=== PATIENT | male | born 1950 | race African-American/Black ===

== ENCOUNTER 2016-12-05 14:11 | Inpatient (IN) | payer MEDICARE, MEDICAID ==
[~2016-12-05] VITALS: Ht 172.7 cm; Wt 109.8 kg
--- NOTE | 2016-12-05 14:29 | Emergency Room Report ---
History of Present Illness General Chief Complaint: To Be Triaged Source: Patient, Significant Other Present Illness HPI Patient presents with dark urine. He said it just started this morning. He started new medication for his blood pressure a week ago. He denies any fevers , chills, nausea, vomiting, diarrhea, chest pain, shortness of breath or cough, rashes. He doesn't feel dehydrated at this time. He denies having kidney stones in the past. He's not taking blood thinners at this time. He is diabetic. He has no pain or dysuria. No prior renal disease. No discharge. No trauma. He had labs done recently and states they were normal. Allergies: Coded Allergies: SULFA (SULFONAMIDE ANTIBIOTICS) (Verified Allergy, Unknown, 12/05/16) Patient History Past Medical History: see triage record Social History: Reports: smoking Social History Narrative with Reviewed Nursing Documentation: PMH: Agreed, PSxH: Agreed Review of Systems All Other Systems: negative except mentioned in HPI Physical Exam Vital Signs Date Time Temp Pulse Resp B/P (MAP) Pulse Ox O2 Delivery O2 Flow Rate FiO2 12/05/16 14:46 97.9 72 16 149/72 97 Room Air Sp02 EP Interpretation: reviewed, normal General Appearance: well appearing, no apparent distress, GCS 15 Head: normocephalic Eyes: bilateral eye normal inspection, bilateral eye PERRL ENT: moist mucus membranes Neck: supple Respiratory: lungs clear, normal breath sounds Cardiovascular #1: regular rate, rhythm Cardiovascular #2: 2+ radial (R) Gastrointestinal: normal inspection, normal bowel sounds, non tender, no mass, non-distended Genitourinary: no CVA tenderness Musculoskeletal: back normal, gait/station normal, normal range of motion Neurologic: alert, oriented x3, grossly normal Psychiatric: mood/affect normal Skin: normal inspection, warm/dry Medical Decision Making Diagnostic Impression: Primary Impression: Acute renal failure Qualified Codes: N17.9 - Acute kidney failure, unspecified Additional Impressions: UTI (urinary tract infection) Qualified Codes: N30.00 - Acute cystitis without hematuria History of chronic hypertension ER Course Patient presents with dark urine. Ddx: rhabdo, hematuria, UTI, bladder polyp, dehydration, stone amongst others. Evaluation is with labs and abdominal films. The patient will receive IV hydration. He is not in pain. Labs significant for renal failure. Dialysis is not indicated. Abd films unremarkable. Evidence of UTI - antibiotics begun. Due to severity of renal dysfunction, patient is admitted for urgent evaluation. Admit med Dr. Champion. Laboratory Tests Test 12/05/16 14:55 12/05/16 15:00 12/05/16 21:00 12/06/16 04:55 Urine Color Brown Urine Appearance Slightly cloudy Urine pH 5 (4.5-8.0) Urine Specific [place] 1.025 (1.005-1.035) Urine Protein 3+ (NEGATIVE) H Urine Glucose (UA) Negative (NEGATIVE) Urine Ketones Negative (NEGATIVE) Urine Occult Blood 5+ (NEGATIVE) H Urine Nitrite Positive (NEGATIVE) H Urine Bilirubin 1+ (NEGATIVE) H Urine Ictotest Negative Urine Urobilinogen 1 MG/DL (0.0-1.0) H Urine Leukocyte Esterase 2+ (NEGATIVE) H Urine RBC 20-30 /HPF (0 - 0) H Urine WBC 5-10 /HPF (0 - 0) H Urine Squamous Epithelial Cells None /LPF (NONE/OCC) Urine Amorphous Sediment Few /LPF (NONE) H Urine Bacteria Few /HPF (NONE) White Blood Count 5.0 K/UL (4.8-10.8) 3.6 K/UL (4.8-10.8) L Red Blood Count 3.26 M/UL (4.70-6.10) L 3.21 M/UL (4.70-6.10) L Hemoglobin 11.7 G/DL (14.2-18.0) L 11.7 G/DL (14.2-18.0) L Hematocrit 35.1 % (42.0-52.0) L 33.8 % (42.0-52.0) L Mean Corpuscular Volume 108 FL (80-99) H 106 FL (80-99) H Mean Corpuscular Hemoglobin 36.0 PG (27.0-31.0) H 36.3 PG (27.0-31.0) H Mean Corpuscular Hemoglobin Concent 33.4 G/DL (32.0-36.0) 34.5 G/DL (32.0-36.0) Red Cell Distribution Width 11.4 % (11.6-14.8) L 11.1 % (11.6-14.8) L Platelet Count 134 K/UL (150-450) L 126 K/UL (150-450) L Mean Platelet Volume 7.1 FL (6.5-10.1) 7.7 FL (6.5-10.1) Neutrophils (%) (Auto) 58.2 % (45.0-75.0) 57.7 % (45.0-75.0) Lymphocytes (%) (Auto) 21.1 % (20.0-45.0) 20.8 % (20.0-45.0) Monocytes (%) (Auto) 11.1 % (1.0-10.0) H 11.4 % (1.0-10.0) H Eosinophils (%) (Auto) 7.8 % (0.0-3.0) H 7.8 % (0.0-3.0) H Basophils (%) (Auto) 1.8 % (0.0-2.0) 2.4 % (0.0-2.0) H Prothrombin Time 9.3 SEC (9.30-11.50) Prothrombin Time INR 0.9 (0.9-1.1) PTT 33 SEC (23-33) Sodium Level 137 mEQ/L (135-145) 136 mEQ/L (135-145) Potassium Level 4.7 mEQ/L (3.4-4.9) 4.7 mEQ/L (3.4-4.9) Chloride Level 95 mEQ/L (98-107) L 98 mEQ/L (98-107) Carbon Dioxide Level 25 mEQ/L (20-30) 24 mEQ/L (20-30) Anion Gap 17 (5-15) H 14 (5-15) Blood Urea Nitrogen 64 mg/dL (7-23) H 56 mg/dL (7-23) H Creatinine 5.9 mg/dL (0.7-1.2) H 3.3 mg/dL (0.7-1.2) H Estimate Glomerular Filtration Rate 11.6 mL/min (>60) 22.8 mL/min (>60) Glucose Level 99 mg/dL (74-106) 97 mg/dL (74-106) Calcium Level 9.7 mg/dL (8.6-10.2) 8.9 mg/dL (8.6-10.2) Total Bilirubin 0.7 mg/dL (0.0-1.2) 0.5 mg/dL (0.0-1.2) Aspartate Amino Transferase (AST) 24 U/L (5-40) 29 U/L (5-40) Alanine Aminotransferase (ALT) 24 U/L (3-41) 24 U/L (3-41) Alkaline Phosphatase 38 U/L (40-129) L 34 U/L (40-129) L Total Creatine Kinase 190 U/L (38-174) H Total Protein 8.2 g/dL (6.6-8.7) 7.0 g/dL (6.6-8.7) Albumin 5.1 g/dL (3.5-5.2) 4.3 g/dL (3.5-5.2) Globulin 3.1 g/dL 2.7 g/dL Albumin/Globulin Ratio 1.6 (1.0-2.7) 1.5 (1.0-2.7) Lipase 53 U/L (< 60) Urine Eosinophils None seen Urine Osmolality 451 mOsm/kg (429-449) H Urine Random Sodium 110 mmol/L Urine Random Chloride 77 mmol/L Urine Potassium Timed 13 mmol/L Hemoglobin A1c 5.4 % (< 6.0) Triglycerides Level 202 mg/dL (< 150) H Cholesterol Level 149 mg/dL (< 200) LDL Cholesterol 57 mg/dL (60-99) L HDL Cholesterol 52 mg/dL (> 60) Cholesterol/HDL Ratio 2.9 (3.3-4.4) L Thyroid Stimulating Hormone (TSH) 3.510 uIU/mL (0.300-4.500) Rhythm Strip Diag. Results EP Interpretation: yes Rhythm: NSR, no PVC's, no ectopy Other X-Ray Diagnostic Results Other X-Ray Diagnostic Results : X-Ray ordered: abd # of Views/Limited Vs Complete: 2 View Indication: Other Interpretation: nonspecific bowel gas, no sbo, other - no calcifications or masses Impression: Other Interpreting ER Provider: signed Amarjit Simons MD Status: improved Disposition: ADMITTED INPATIENT Condition: Serious Amarjit Simons M.D. Dec 05, 2016 14:29
[2016-12-05 15:30] LABS: APPEARANCE,URINE SLIGHTLY CLOUDY; KETONES,URINE NEGATIVE (NEGATIVE); LEUKOCYTE ESTERASE ,URINE 2+ (NEGATIVE); NITRITE,URINE POSITIVE (NEGATIVE); PH,URINE 5 (4.5-8.0); PROTEIN,URINE 3+ (NEGATIVE); UROBILINOGEN,URINE 1 MG/DL (0.0-1.0)
[2016-12-05 15:36] LABS: BASOPHILS % (AUTO) 1.8 % (0.0-2.0); EOSINOPHILS % (AUTO) 7.8 % (0.0-3.0); LYMPHOCYTES % (AUTO) 21.1 % (20.0-45.0); MEAN CORPUSCULAR HGB CONC 33.4 G/DL (32.0-36.0); MEAN CORPUSCULAR VOLUME 108 FL (80-99); MEAN PLATELET VOLUME 7.1 FL (6.5-10.1); MONOCYTES % (AUTO) 11.1 % (1.0-10.0); NEUTROPHILS % (AUTO) 58.2 % (45.0-75.0); PLATELET COUNT 134 K/UL (150-450); RED BLOOD COUNT 3.26 M/UL (4.70-6.10); RED CELL DISTRIBUTION WIDTH 11.4 % (11.6-14.8)
[2016-12-05 15:43] LABS: INR 0.9 (0.9-1.1); PROTHROMBIN TIME 9.3 SEC (9.30-11.50)
[2016-12-05 15:50] LABS: AMORPHOUS SEDIMENT,UR FEW /LPF; BACTERIA,URINE FEW /HPF; RBC,URINE 20-30 /HPF (0 - 0)
[2016-12-05 15:51] LABS: ICTOTEST NEGATIVE
[2016-12-05 15:56] LABS: ALBUMIN/GLOBULIN RATIO 1.6 (1.0-2.7); CALCIUM 9.7 mg/dL (8.6-10.2); CREATININE 5.9 mg/dL (0.7-1.2); GLOMERULAR FILTRATION RATE 11.6 mL/min (>60); POTASSIUM 4.7 mEQ/L (3.4-4.9); TOTAL PROTEIN 8.2 g/dL (6.6-8.7)
[2016-12-05 16:30] VITALS: BP 147/64
[2016-12-05] MEDS ORDERED: NS 55 ML IV ONE (17:10)
[2016-12-05] MEDS ORDERED: Tubing IV Cassette IV ONE (17:10)
[2016-12-05] MEDS: cefTRIAXone 1 GM in NS 55 ML IVPB ONE ×2 (17:15→17:17)
[2016-12-05] MEDS ORDERED: SIMVASTATIN40 MG ORAL (17:29)
[2016-12-05] MEDS ORDERED: AMLODIPINE BESY10 MG ORAL (17:29)
[2016-12-05] MEDS ORDERED: SPIRONOLACTONE1 EACH ORAL (17:29)
[2016-12-05] MEDS ORDERED: LEVOTHYROXINE25 MCG ORAL (17:29)
[2016-12-05] MEDS ORDERED: METOPROLOL TART25 MG ORAL (17:29)
[2016-12-05] MEDS ORDERED: DIOVAN320 MG ORAL (17:29)
[2016-12-05] MEDS ORDERED: LYRICA75 M1 ORAL (17:29)
[2016-12-05] MEDS ORDERED: METFORMIN HCL500 M1 ORAL (17:29)
[2016-12-05] MEDS ORDERED: Mylanta II UD 30ml ORAL PRN (17:45)
[2016-12-05] MEDS ORDERED: Zolpidem 5mg tab ORAL PRN (17:45)
[2016-12-05] MEDS ORDERED: LORazepam Inj 2mg/ml 1ml IV PRN (17:45)
[2016-12-05] MEDS ORDERED: Morphine Sulfate 2mg/ml Inj IVP PRN (17:45)
[2016-12-05] MEDS ORDERED: Miralax 17gm pkt ORAL PRN (17:45)
[2016-12-05 18:54] VITALS: BP 142/70
[2016-12-05 20:00] VITALS: BP 145/58
[2016-12-05] MEDS: Heparin 5000 units/ml inj SUBQ SCH (21:00)
[2016-12-05] MEDS: Metoprolol 25mg tab ORAL SCH (21:19)
[2016-12-06 04:00] VITALS: BP 139/77
[2016-12-06] MEDS: Levothyroxine 25mcg tab ORAL SCH (05:54)
[2016-12-06 06:21] LABS: BASOPHILS % (AUTO) 2.4 % (0.0-2.0); EOSINOPHILS % (AUTO) 7.8 % (0.0-3.0); LYMPHOCYTES % (AUTO) 20.8 % (20.0-45.0); MEAN CORPUSCULAR HEMOGLOBIN 36.3 PG (27.0-31.0); MEAN CORPUSCULAR HGB CONC 34.5 G/DL (32.0-36.0); MEAN CORPUSCULAR VOLUME 106 FL (80-99); MEAN PLATELET VOLUME 7.7 FL (6.5-10.1); MONOCYTES % (AUTO) 11.4 % (1.0-10.0); NEUTROPHILS % (AUTO) 57.7 % (45.0-75.0); PLATELET COUNT 126 K/UL (150-450); RED BLOOD COUNT 3.21 M/UL (4.70-6.10); RED CELL DISTRIBUTION WIDTH 11.1 % (11.6-14.8); WHITE BLOOD COUNT 3.6 K/UL (4.8-10.8)
[2016-12-06 06:38] LABS: ALBUMIN/GLOBULIN RATIO 1.5 (1.0-2.7); CALCIUM 8.9 mg/dL (8.6-10.2); CHOLESTEROL/HDL RATIO 2.9 (3.3-4.4); CREATININE 3.3 mg/dL (0.7-1.2); GLOMERULAR FILTRATION RATE 22.8 mL/min (>60); POTASSIUM 4.7 mEQ/L (3.4-4.9)
[2016-12-06 06:40] LABS: HEMOGLOBIN A1C 5.4 % (< 6.0)
[2016-12-06 06:49] LABS: THYROID STIMULATING HORMONE 3.51 uIU/mL (0.300-4.500)
[2016-12-06 08:00] VITALS: BP 121/57
[2016-12-06] MEDS: Metoprolol 25mg tab ORAL SCH ×2 (08:31→21:00)
[2016-12-06] MEDS: Heparin 5000 units/ml inj SUBQ SCH ×2 (08:37→21:00)
--- NOTE | 2016-12-06 08:56 | Consultation ---
Consult Note Consult Note asked to eval for renal failure Patient presents with dark urine. He said it just started yesterday morning. He started new medication for his blood pressure a week ago. The second after the changes. He denies any fevers, chills, nausea, vomiting, diarrhea, chest pain, shortness of breath or cough, rashes. He doesn't feel dehydrated at this time. He denies having kidney stones in the past. He's not taking blood thinners at this time. He is diabetic. Patient interviewed and examined- List of meds reviewed on Aldactone- Metformin- Valsartan, HCTZ . Assessment/Plan Acute renal failure likely superimposed on CRI Anemia HTN h/o CHF Plan: Avoid Nephrotoxics Kidney BLAYNE Urine studies Hydrate slow 2D Echo Monitor renal parameters SHIRA Sullivan Dec 06, 2016 08:56
[2016-12-06] MEDS: Tamsulosin 0.4mg cap ORAL SCH ×2 (09:35→17:13)
--- NOTE | 2016-12-06 11:36 | Diagnostic Imaging Report ---
Indication: Abdominal pain Comparison: None Single view of the abdomen obtained Findings: Bowel gas pattern is nonspecific. No mass, ectopic calcifications, or abnormal gas collections are identified. The bones are osteopenic. Degenerative changes moderate in degree noted throughout the thoracic and lumbar spine. Impression: No acute findings
[2016-12-06 12:00] VITALS: BP 131/59
--- NOTE | 2016-12-06 12:53 | Diagnostic Imaging Report ---
Indication:Elevated Bun and Creatinine. Technique: Grayscale and duplex Doppler imaging of the kidneys performed. Comparison: None Findings: There are multiple cysts within the right kidney which measures 12.3 CM. The left kidney is a 12.1 CM in length. Largest cyst is in the upper pole the right kidney and measures about 7 cm. No hydronephrosis demonstrated. There is a small cyst in the liver as well. IVC and bladder appear unremarkable. Impression: Multiple cysts within the right kidney.
[2016-12-06] MEDS ORDERED: D5NS 1,000 ML IV ONE (13:15)
[2016-12-06 16:00] VITALS: BP 131/60
--- NOTE | 2016-12-06 18:38 | Cardiology Report ---
APPROVED REPORT EXAM: Two-dimensional and M-mode echocardiogram with Doppler and color Doppler. INDICATION Congestive Heart Failure M-Mode DIMENSIONS IVSd1.4 (0.7-1.1cm)Left Atrium (MM)4.5 (1.6-4.0cm) LVDd5.0 (3.5-5.6cm)Aortic Root2.9 (2.0-3.7cm) PWd1.9 (0.7-1.1cm)Aortic Cusp Exc.1.6 (1.5-2.0cm) IVSs2.1 cm LVDs3.3 (2.5-4.0cm) PWs2.4 cm Technically difficult study due to poor acoustical windows and pts body habitus. Left ventricular enlargement by 2-D. Normal systolic function and wall motion to extent visualized. Left ventricular ejection fraction estimated to be 65-70 %. Study quality precludes accurate assessment of regional wall motion. Mild left ventricular hypertrophy. Anterior Echo-free space, may be due to pericardial fat or effusion. Moderate left atrial enlargement. Mild right atrial enlargement. Right ventricular chamber size is within normal limits. Focal aortic valve sclerosis with adequate cusp excursion. Thickened mitral valve leaflets with normal excursion. Mitral annulus and aortic root calcification. Pulmonic valve not well visualized. Normal tricuspid valve structure. IVC at normal size with physiologic collapse. A color flow and spectral Doppler study was performed and revealed: Mild aortic regurgitation. Mild mitral regurgitation. Mitral inflow indicates normal left ventricular diastolic function. Mild tricuspid regurgitation. Tricuspid systolic velocities suggests peak right ventricular systolic pressure of 36 mmHg, consistent with borderline mild pulmonary hypertension. Trace pulmonic regurgitation present.
[2016-12-06 20:00] VITALS: BP 127/63
[2016-12-06] MEDS: NovoLOG Insulin Flexpen SUBQ SCH (21:00)
[2016-12-07] VITALS: BP 136/69
[2016-12-07] MEDS: Levothyroxine 25mcg tab ORAL SCH (06:05)
[2016-12-07] MEDS: NovoLOG Insulin Flexpen SUBQ SCH ×3 (06:06→16:30)
[2016-12-07 07:10] LABS: HEMOGLOBIN A1C 5.7 % (< 6.0)
[2016-12-07 07:13] LABS: MEAN CORPUSCULAR HEMOGLOBIN 35.7 PG (27.0-31.0); MEAN CORPUSCULAR HGB CONC 34.1 G/DL (32.0-36.0); MEAN CORPUSCULAR VOLUME 105 FL (80-99); MEAN PLATELET VOLUME 7.7 FL (6.5-10.1); PLATELET COUNT 121 K/UL (150-450); RED BLOOD COUNT 3.32 M/UL (4.70-6.10); RED CELL DISTRIBUTION WIDTH 10.8 % (11.6-14.8); WHITE BLOOD COUNT 3.4 K/UL (4.8-10.8)
[2016-12-07 07:22] LABS: FERRITIN 196 ng/mL (10-230)
[2016-12-07 07:25] LABS: ALANINE AMINOTRANSFERASE 30 U/L (3-41); ALBUMIN/GLOBULIN RATIO 1.4 (1.0-2.7); ANION GAP 15 (5-15); ASPARTATE AMINO TRANSFERASE 46 U/L (5-40); CARBON DIOXIDE 24 mEQ/L (20-30); CHLORIDE 94 mEQ/L (98-107); CREATININE 1.4 mg/dL (0.7-1.2); GLOMERULAR FILTRATION RATE > 60 mL/min (>60); HEMOLYSIS 4; POTASSIUM 4.4 mEQ/L (3.4-4.9); SODIUM 133 mEQ/L (135-145); TOTAL PROTEIN 7.3 g/dL (6.6-8.7); URIC ACID 10.2 mg/dL (3.0-7.5)
[2016-12-07 07:27] LABS: CRP QUANT < 0.3 mg/dL (< 0.5); MAGNESIUM 1.8 mg/dL (1.7-2.5); PHOSPHORUS 2.8 mg/dL (2.5-4.8)
[2016-12-07 08:00] VITALS: BP 117/47
[2016-12-07] MEDS: Tamsulosin 0.4mg cap ORAL SCH ×2 (08:17→17:16)
[2016-12-07] MEDS: Metoprolol 25mg tab ORAL SCH (08:18)
[2016-12-07] MEDS: Heparin 5000 units/ml inj SUBQ SCH (08:20)
[2016-12-07 09:55] LABS: BAND NEUTROPHILS % (MANUAL) 0 % (0-8); BASOPHILS % (MANUAL) 0 % (0-2); EOSINOPHILS % (MANUAL) 9 % (0-3); LYMPHOCYTES % (MANUAL) 35 % (20-45); MACROCYTES 1+; NEUTROPHILS % (MANUAL) 47 % (45-75); PLATELET ESTIMATE DECREASED; PLATELET MORPHOLOGY NORMAL; TOTAL CELLS COUNTED 100
--- NOTE | 2016-12-07 12:02 | General Progress Note ---
Assessment/Plan Status: doing well, stable Status Narrative Cr 5.9 now down to 1.4 Assessment/Plan status: Acute renal failure likely superimposed on CRI Anemia HTN h/o CHF Plan: Avoid Nephrotoxics Kidney BLAYNE : unremarkable Urine studies Hydrate slow 2D Echo: Left ventricular ejection fraction estimated to be 65-70 %. Monitor renal parameters Fl[place]ax DC planning Subjective ROS Limited/Unobtainable: No Constitutional: Reports: other - stronger Allergies: Coded Allergies: SULFA (SULFONAMIDE ANTIBIOTICS) (Verified Allergy, Unknown, 12/05/16) Objective Last 24 Hour Vital Signs Date Time Temp Pulse Resp B/P (MAP) Pulse Ox O2 Delivery O2 Flow Rate FiO2 12/07/16 08:20 75 117/47 12/07/16 08:18 75 117/47 12/07/16 08:00 98.2 68 17 117/47 95 Room Air 12/07/16 00:00 97.9 68 16 136/69 97 Room Air 12/06/16 21:00 61 127/63 12/06/16 20:00 98.2 61 18 127/63 96 Room Air 12/06/16 16:00 97.2 61 20 131/60 98 Room Air 12/06/16 12:00 97.4 50 20 131/59 97 Room Air Current Medications Medications (Trade) Dose Ordered Sig/Simran Route PRN Reason Start Time Stop Time Status Last Admin Dose Admin Acetaminophen (Tylenol) 650 mg Q4H PRN ORAL fever 12/05/16 17:45 01/04/17 17:44 Amlodipine Besylate (Norvasc) 5 mg DAILY ORAL 12/07/16 09:00 01/06/17 08:59 Clonidine HCl (Catapres) 0.1 mg Q4H PRN ORAL SBP>160 mmHg 12/06/16 13:45 01/05/17 13:44 Dextrose (Dextrose 50%) STAT PRN IV Hypoglycemia 12/05/16 17:45 01/04/17 17:44 Heparin Sodium (Porcine) (Heparin 5000 units/ml) 5,000 units EVERY 12 HOURS SUBQ 12/05/16 21:00 01/04/17 20:59 Insulin Aspart (NovoLOG) BEFORE MEALS AND HS SUBQ 12/06/16 21:00 01/05/17 20:59 Levothyroxine Sodium (Synthroid) 25 mcg ACBREAKFAST ORAL 12/06/16 06:30 01/05/17 06:29 12/07/16 06:05 Lorazepam (Ativan 2mg/ml 1ml) 0.5 mg Q4H PRN IV For Anxiety 12/05/16 17:45 12/12/16 17:44 Metoprolol Tartrate (Lopressor) 25 mg EVERY 12 HOURS ORAL 12/05/16 21:00 01/04/17 20:59 12/06/16 08:31 Morphine Sulfate (Morphine Sulfate) 1 mg Q4H PRN IVP For Pain 12/05/16 17:45 12/12/16 17:44 Ondansetron HCl (Zofran) 4 mg Q6H PRN IVP Nausea & Vomiting 12/05/16 17:45 01/04/17 17:44 Polyethylene Glycol (Miralax) 17 gm HSPRN PRN ORAL Constipation 12/05/16 17:45 01/04/17 17:44 Tamsulosin HCl (Flomax) 0.4 mg BID ORAL 12/06/16 10:00 01/05/17 09:59 12/07/16 08:17 Zolpidem Tartrate (Ambien) 5 mg HSPRN PRN ORAL Insomnia 12/05/16 17:45 12/12/16 17:44 Laboratory Tests 12/07/16 05:35: White Blood Count 3.4L, Red Blood Count 3.32L, Hemoglobin 11.8L, Hematocrit 34.7L, Mean Corpuscular Volume 105H, Mean Corpuscular Hemoglobin 35.7H, Mean Corpuscular Hemoglobin Concent 34.1, Red Cell Distribution Width 10.8L, Platelet Count 121L, Mean Platelet Volume 7.7, Neutrophils (%) (Auto) , Lymphocytes (%) (Auto) , Monocytes (%) (Auto) , Eosinophils (%) (Auto) , Basophils (%) (Auto) , Differential Total Cells Counted 100, Neutrophils % ( Manual) 47, Lymphocytes % (Manual) 35, Monocytes % (Manual) 9, Eosinophils % ( Manual) 9H, Basophils % (Manual) 0, Band Neutrophils 0, Platelet Estimate DecreasedL, Platelet Morphology Normal, Macrocytosis 1+, Sodium Level 133L, Potassium Level 4.4, Chloride Level 94L, Carbon Dioxide Level 24, Anion Gap 15, Blood Urea Nitrogen 34H, Creatinine 1.4#H, Estimat Glomerular Filtration Rate > 60, Glucose Level 101, Hemoglobin A1c 5.7, Uric Acid 10.2H, Calcium Level 9.0, Phosphorus Level 2.8, Magnesium Level 1.8, Ferritin 196, Total Bilirubin 0.5, Gamma Glutamyl Transpeptidase 50, Aspartate Amino Transf (AST/SGOT) 46H, Alanine Aminotransferase (ALT/SGPT) 30, Alkaline Phosphatase 35L, Total Creatine Kinase 140, C-Reactive Protein, Quantitative < 0.3, Pro-B-Type Natriuretic Peptide 88, Total Protein 7.3, Albumin 4.3, Globulin 3.0, Albumin/ Globulin Ratio 1.4, Vitamin B12 Level 1189H, Folate [Pending] Height (Feet): 5 Height (Inches): 8.00 Weight (Pounds): 242 General Appearance: no apparent distress Cardiovascular: normal rate Respiratory/Chest: lungs clear Abdomen: soft, other - obese Objective no signs of CHF SHIRA WORTHINGTON Dec 07, 2016 12:02
[2016-12-07 12:21] VITALS: BP 130/64
--- NOTE | 2016-12-07 15:36 | History and Physical ---
History of Present Illness General Date patient seen: Dec 05, 2016 Reason for Hospitalization: Male Urogenital Problems Present Illness HPI 65 year old male with hx of DM, HTN, hypothyroid presented to ER with dark urine started this morning. He started new medication for his blood pressure a week ago. He denies any fevers, chills, nausea, vomiting, diarrhea, chest pain , shortness of breath or cough, rashes. He doesn't feel dehydrated at this time. He denies having kidney stones in the past. He's not taking blood thinners at this time. He was diagnosed to have acute renal failure and admitted for further work up. Allergies: Coded Allergies: SULFA (SULFONAMIDE ANTIBIOTICS) (Verified Allergy, Unknown, 12/05/16) Medication History Scheduled Amlodipine Besylate* (Amlodipine Besylate*), 10 MG ORAL DAILY, (Reported) Levothyroxine Sodium* (Levothyroxine Sodium*), 25 MCG ORAL DAILY, (Reported) Metformin Hcl* (Metformin Hcl*), 500 MG ORAL TWICE A DAY, (Reported) Metoprolol Tartrate* (Metoprolol Tartrate*), 25 MG ORAL EVERY 12 HOURS, ( Reported) Pregabalin* (Lyrica*), 50 MG ORAL BID, (Reported) Simvastatin (Zocor), 40 MG ORAL BEDTIME, (Reported) Spironolact/Hydrochlorothiazid (Spironolactone-Hctz 25-25 Tab), 1 TAB ORAL DAILY , (Reported) Valsartan (Diovan), 320 MG ORAL DAILY, (Reported) Patient History Healthcare decision maker Resuscitation status Full Code Advanced Directive on File Past Medical/Surgical History Past Medical/Surgical History: (1) Diabetes mellitus (2) Hypothyroidism (3) History of chronic hypertension Review of Systems Constitutional: Reports: malaise, weakness All Other Systems: negative except mentioned in HPI Physical Exam General Appearance: WD/WN, overweight Lines, tubes and drains: peripheral HEENT: normocephalic, atraumatic Neck: non-tender, supple Respiratory/Chest: chest wall non-tender, normal breath sounds Cardiovascular/Chest: normal peripheral pulses, normal rate Abdomen: normal bowel sounds Genitourinary/Rectal: normal genital exam, heme negative stool Extremities: normal range of motion Last 24 Hour Vital Signs Date Time Temp Pulse Resp B/P (MAP) Pulse Ox O2 Delivery O2 Flow Rate FiO2 9/6/17 12:21 97.6 70 17 130/64 98 Room Air 12/07/16 08:20 75 117/47 12/07/16 08:18 75 117/47 12/07/16 08:00 98.2 68 17 117/47 95 Room Air 12/07/16 00:00 97.9 68 16 136/69 97 Room Air 12/06/16 21:00 61 127/63 12/06/16 20:00 98.2 61 18 127/63 96 Room Air 12/06/16 16:00 97.2 61 20 131/60 98 Room Air Laboratory Tests Test 12/07/16 05:35 White Blood Count 3.4 K/UL (4.8-10.8) L Red Blood Count 3.32 M/UL (4.70-6.10) L Hemoglobin 11.8 G/DL (14.2-18.0) L Hematocrit 34.7 % (42.0-52.0) L Mean Corpuscular Volume 105 FL (80-99) H Mean Corpuscular Hemoglobin 35.7 PG (27.0-31.0) H Mean Corpuscular Hemoglobin Concent 34.1 G/DL (32.0-36.0) Red Cell Distribution Width 10.8 % (11.6-14.8) L Platelet Count 121 K/UL (150-450) L Mean Platelet Volume 7.7 FL (6.5-10.1) Neutrophils (%) (Auto) % (45.0-75.0) Lymphocytes (%) (Auto) % (20.0-45.0) Monocytes (%) (Auto) % (1.0-10.0) Eosinophils (%) (Auto) % (0.0-3.0) Basophils (%) (Auto) % (0.0-2.0) Differential Total Cells Counted 100 Neutrophils % (Manual) 47 % (45-75) Lymphocytes % (Manual) 35 % (20-45) Monocytes % (Manual) 9 % (1-10) Eosinophils % (Manual) 9 % (0-3) H Basophils % (Manual) 0 % (0-2) Band Neutrophils 0 % (0-8) Platelet Estimate Decreased L Platelet Morphology Normal Macrocytosis 1+ Sodium Level 133 mEQ/L (135-145) L Potassium Level 4.4 mEQ/L (3.4-4.9) Chloride Level 94 mEQ/L (98-107) L Carbon Dioxide Level 24 mEQ/L (20-30) Anion Gap 15 (5-15) Blood Urea Nitrogen 34 mg/dL (7-23) H Creatinine 1.4 mg/dL (0.7-1.2) #H Estimat Glomerular Filtration Rate > 60 mL/min (>60) Glucose Level 101 mg/dL (74-106) Hemoglobin A1c 5.7 % (< 6.0) Uric Acid 10.2 mg/dL (3.0-7.5) H Calcium Level 9.0 mg/dL (8.6-10.2) Phosphorus Level 2.8 mg/dL (2.5-4.8) Magnesium Level 1.8 mg/dL (1.7-2.5) Ferritin 196 ng/mL (10-230) Total Bilirubin 0.5 mg/dL (0.0-1.2) Gamma Glutamyl Transpeptidase 50 U/L (8-61) Aspartate Amino Transf (AST/SGOT) 46 U/L (5-40) H Alanine Aminotransferase (ALT/SGPT) 30 U/L (3-41) Alkaline Phosphatase 35 U/L (40-129) L Total Creatine Kinase 140 U/L (38-174) C-Reactive Protein, Quantitative < 0.3 mg/dL (< 0.5) Pro-B-Type Natriuretic Peptide 88 pg/mL (0-125) Total Protein 7.3 g/dL (6.6-8.7) Albumin 4.3 g/dL (3.5-5.2) Globulin 3.0 g/dL Albumin/Globulin Ratio 1.4 (1.0-2.7) Vitamin B12 Level 1189 pg/mL (211-946) H Folate Pending Height (Feet): 5 Height (Inches): 8.00 Weight (Pounds): 242 Medications Current Medications Medications (Trade) Dose Ordered Sig/Simran Route PRN Reason Start Time Stop Time Status Last Admin Dose Admin Acetaminophen (Tylenol) 650 mg Q4H PRN ORAL fever 12/05/16 17:45 01/04/17 17:44 Amlodipine Besylate (Norvasc) 5 mg DAILY ORAL 12/07/16 09:00 01/06/17 08:59 Clonidine HCl (Catapres) 0.1 mg Q4H PRN ORAL SBP>160 mmHg 12/06/16 13:45 01/05/17 13:44 Dextrose (Dextrose 50%) STAT PRN IV Hypoglycemia 12/05/16 17:45 01/04/17 17:44 Heparin Sodium (Porcine) (Heparin 5000 units/ml) 5,000 units EVERY 12 HOURS SUBQ 12/05/16 21:00 01/04/17 20:59 Insulin Aspart (NovoLOG) BEFORE MEALS AND HS SUBQ 12/06/16 21:00 01/05/17 20:59 Levothyroxine Sodium (Synthroid) 25 mcg ACBREAKFAST ORAL 12/06/16 06:30 01/05/17 06:29 12/07/16 06:05 Lorazepam (Ativan 2mg/ml 1ml) 0.5 mg Q4H PRN IV For Anxiety 12/05/16 17:45 12/12/16 17:44 Metoprolol Tartrate (Lopressor) 25 mg EVERY 12 HOURS ORAL 12/05/16 21:00 01/04/17 20:59 12/06/16 08:31 Morphine Sulfate (Morphine Sulfate) 1 mg Q4H PRN IVP For Pain 12/05/16 17:45 12/12/16 17:44 Ondansetron HCl (Zofran) 4 mg Q6H PRN IVP Nausea & Vomiting 12/05/16 17:45 01/04/17 17:44 Polyethylene Glycol (Miralax) 17 gm HSPRN PRN ORAL Constipation 12/05/16 17:45 01/04/17 17:44 Tamsulosin HCl (Flomax) 0.4 mg BID ORAL 12/06/16 10:00 01/05/17 09:59 12/07/16 08:17 Zolpidem Tartrate (Ambien) 5 mg HSPRN PRN ORAL Insomnia 12/05/16 17:45 12/12/16 17:44 Assessment/Plan Problem List: (1) ATN (acute tubular necrosis) ICD Codes: N17.0 - Acute kidney failure with tubular necrosis SNOMED: 73203564 (2) Diabetes mellitus ICD Codes: E11.9 - Type 2 diabetes mellitus without complications SNOMED: 18534982 (3) Hypothyroidism ICD Codes: E03.9 - Hypothyroidism, unspecified SNOMED: 66342996 Assessment/Plan renal US check electrolytes check urine lytes nephrology evaluation sliding scale diabetic diet ANGI SOTO Dec 07, 2016 15:36
--- NOTE | 2016-12-07 15:37 | Pulmonology Progress Note ---
Assessment/Plan Problems: (1) ATN (acute tubular necrosis) (2) Diabetes mellitus (3) Hypothyroidism Assessment/Plan improving the color of urine is better sliding scale diabetic diet f/u electrolytes Subjective ROS Limited/Unobtainable: No Interval Events: late note for 12/06 Constitutional: Reports: no symptoms HEENT: Repors: no symptoms Respiratory: Reports: no symptoms Allergies: Coded Allergies: SULFA (SULFONAMIDE ANTIBIOTICS) (Verified Allergy, Unknown, 12/05/16) Objective Last 24 Hour Vital Signs Date Time Temp Pulse Resp B/P (MAP) Pulse Ox O2 Delivery O2 Flow Rate FiO2 12/07/16 12:21 97.6 70 17 130/64 98 Room Air 12/07/16 08:20 75 117/47 12/07/16 08:18 75 117/47 12/07/16 08:00 98.2 68 17 117/47 95 Room Air 12/07/16 00:00 97.9 68 16 136/69 97 Room Air 12/06/16 21:00 61 127/63 12/06/16 20:00 98.2 61 18 127/63 96 Room Air 12/06/16 16:00 97.2 61 20 131/60 98 Room Air General Appearance: WD/WN HEENT: normocephalic, atraumatic Respiratory/Chest: chest wall non-tender, normal breath sounds Cardiovascular: normal peripheral pulses, normal rate Abdomen: normal bowel sounds, soft, non tender, no organomegaly Genitourinary: normal external genitalia Extremities: no clubbing Skin: no lesions, no ulcers Neurologic/Psychiatric: digital strategy specialist II-XII grossly normal, abnormal gait Lymphatic: no neck adenopathy, no groin adenopathy Laboratory Tests 12/07/16 05:35: White Blood Count 3.4L, Red Blood Count 3.32L, Hemoglobin 11.8L, Hematocrit 34.7L, Mean Corpuscular Volume 105H, Mean Corpuscular Hemoglobin 35.7H, Mean Corpuscular Hemoglobin Concent 34.1, Red Cell Distribution Width 10.8L, Platelet Count 121L, Mean Platelet Volume 7.7, Neutrophils (%) (Auto) , Lymphocytes (%) (Auto) , Monocytes (%) (Auto) , Eosinophils (%) (Auto) , Basophils (%) (Auto) , Differential Total Cells Counted 100, Neutrophils % ( Manual) 47, Lymphocytes % (Manual) 35, Monocytes % (Manual) 9, Eosinophils % ( Manual) 9H, Basophils % (Manual) 0, Band Neutrophils 0, Platelet Estimate DecreasedL, Platelet Morphology Normal, Macrocytosis 1+, Sodium Level 133L, Potassium Level 4.4, Chloride Level 94L, Carbon Dioxide Level 24, Anion Gap 15, Blood Urea Nitrogen 34H, Creatinine 1.4#H, Estimat Glomerular Filtration Rate > 60, Glucose Level 101, Hemoglobin A1c 5.7, Uric Acid 10.2H, Calcium Level 9.0, Phosphorus Level 2.8, Magnesium Level 1.8, Ferritin 196, Total Bilirubin 0.5, Gamma Glutamyl Transpeptidase 50, Aspartate Amino Transf (AST/SGOT) 46H, Alanine Aminotransferase (ALT/SGPT) 30, Alkaline Phosphatase 35L, Total Creatine Kinase 140, C-Reactive Protein, Quantitative < 0.3, Pro-B-Type Natriuretic Peptide 88, Total Protein 7.3, Albumin 4.3, Globulin 3.0, Albumin/ Globulin Ratio 1.4, Vitamin B12 Level 1189H, Folate [Pending] Current Medications Medications (Trade) Dose Ordered Sig/Simran Route PRN Reason Start Time Stop Time Status Last Admin Dose Admin Acetaminophen (Tylenol) 650 mg Q4H PRN ORAL fever 12/05/16 17:45 01/04/17 17:44 Amlodipine Besylate (Norvasc) 5 mg DAILY ORAL 12/07/16 09:00 01/06/17 08:59 Clonidine HCl (Catapres) 0.1 mg Q4H PRN ORAL SBP>160 mmHg 12/06/16 13:45 01/05/17 13:44 Dextrose (Dextrose 50%) STAT PRN IV Hypoglycemia 12/05/16 17:45 01/04/17 17:44 Heparin Sodium (Porcine) (Heparin 5000 units/ml) 5,000 units EVERY 12 HOURS SUBQ 12/05/16 21:00 01/04/17 20:59 Insulin Aspart (NovoLOG) BEFORE MEALS AND HS SUBQ 12/06/16 21:00 01/05/17 20:59 Levothyroxine Sodium (Synthroid) 25 mcg ACBREAKFAST ORAL 12/06/16 06:30 01/05/17 06:29 12/07/16 06:05 Lorazepam (Ativan 2mg/ml 1ml) 0.5 mg Q4H PRN IV For Anxiety 12/05/16 17:45 12/12/16 17:44 Metoprolol Tartrate (Lopressor) 25 mg EVERY 12 HOURS ORAL 12/05/16 21:00 01/04/17 20:59 12/06/16 08:31 Morphine Sulfate (Morphine Sulfate) 1 mg Q4H PRN IVP For Pain 12/05/16 17:45 12/12/16 17:44 Ondansetron HCl (Zofran) 4 mg Q6H PRN IVP Nausea & Vomiting 12/05/16 17:45 01/04/17 17:44 Polyethylene Glycol (Miralax) 17 gm HSPRN PRN ORAL Constipation 12/05/16 17:45 01/04/17 17:44 Tamsulosin HCl (Flomax) 0.4 mg BID ORAL 12/06/16 10:00 01/05/17 09:59 12/07/16 08:17 Zolpidem Tartrate (Ambien) 5 mg HSPRN PRN ORAL Insomnia 12/05/16 17:45 12/12/16 17:44 ANGI SOTO Dec 07, 2016 15:37
[2016-12-07 16:00] VITALS: BP 149/64
[2016-12-07] MEDS ORDERED: D5NS 1000ml IV ONE ×2 (18:54)
--- NOTE | 2016-12-08 16:06 | Discharge Summary ---
Discharge Summary Hospital Course Date of Admission Dec 05, 2016 at 16:33 Date of Discharge Dec 07, 2016 at 18:55 Admitting Diagnosis ACUTE RENAL FAILURE HPI Uri Naranjo is a 65 year old male who was admitted on Dec 05, 2016 at 16:33 for Acute Renal Failure Hospital Course [id number] Discharge Discharge Disposition Patient was discharged to Home with Home Health(06) Discharge Diagnoses: Susan Mcdowell NP Dec 08, 2016 16:06
--- NOTE | 2016-12-09 05:45 | Discharge Summary 2 SIG ---
DATE OF ADMISSION: 12/05/2016 DATE OF DISCHARGE: 12/07/2016 SOURCING ASSOCIATE: Javy Reeves M.D. BRIEF HOSPITAL COURSE: The patient is a 65-year-old male with history of diabetes mellitus, hypertension, and hypothyroidism, presented to ED complaining of dark urine. He was recently started on a new medication for his blood pressure a week prior and denied history of kidney stones in the past. Denied taking blood thinners. On evaluation at ED, creatinine was 5.9, BUN was 64. Urinalysis was with evidence of UTI. He was then admitted to medical floor for acute renal failure. He was given slow IV hydration. Renal ultrasound showed multiple cysts within the large kidney. Echocardiogram done showed ejection fraction of 65% to 70% with left ventricular hypertrophy. RVSP 36. He was given Flomax and renal parameters improved. He was eventually discharged home. FINAL DIAGNOSES: 1. Acute renal failure with acute tubular necrosis. 2. Diabetes mellitus. 3. Hypothyroidism. 4. Anemia. 5. Hypertension. 6. History of congestive heart failure. DISPOSITION: The patient was discharged home with home health. DISCHARGE MEDICATIONS: Refer to medication list. FOLLOWUP: The patient was advised to follow up with PMD in a week. ACTIVITY: As tolerated. Berny Champion M.D. I have been assigned to dictate discharge summary on this account and I was not involved in the patient's management. Susan Mcdowell N.P. DR: Rehan JOB#: [id number] CC: NICHOLAS
== END 2016-12-07 18:55 | disposition home health service (06) | DRG 683 ==
LOC: EMR 14:57 → 3E 16:33 → EDBEDREQ 17:27 → 3E 12-06 03:20
DX: N17.0 Acute kidney failure with tubular necrosis (principal); I13.0 Hypertensive heart and chronic kidney disease with heart failure and stage 1 through stage 4 chronic kidney disease, or unspecified chronic kidney disease; I50.9 Heart failure, unspecified; E11.22 Type 2 diabetes mellitus with diabetic chronic kidney disease; D64.9 Anemia, unspecified; N18.9 Chronic kidney disease, unspecified; E03.9 Hypothyroidism, unspecified; Z88.2 Allergy status to sulfonamides
CPT/HCPCS: 36415; 71010; 74000; 76775; 80053; 80061; 81003; 82436; 82550; 82607; 82728; 82746; 82962; 82977; 83036; 83690; 83735; 83880; 83935; 84100; 84133; 84300; 84443; 84550; 85007; 85025; 85610; 85730; 86140; 89050; 93306; 99285; J1815

== ENCOUNTER 2017-01-07 08:13 | Emergency (ER) | payer MEDICARE, MEDICAID ==
[~2017-01-07] VITALS: Ht 172.7 cm; Wt 108.9 kg
[~2017-01-07 08:13] MED LIST: AMLODIPINE BESY10 MG ORAL; DIOVAN320 MG ORAL; LEVOTHYROXINE25 MCG ORAL; LYRICA75 M1 ORAL; METFORMIN HCL500 M1 ORAL; METOPROLOL TART25 MG ORAL; SIMVASTATIN40 MG ORAL; SPIRONOLACTONE1 EACH ORAL
[2017-01-07 08:32] VITALS: BP 139/65
[2017-01-07] MEDS ORDERED: HYDROXYZINE HCL25 M1 PO (08:37)
[2017-01-07 08:42] VITALS: BP 139/65
[2017-01-07] MEDS ORDERED: Dexamethasone 4mg/ml vial IM ONE (08:45)
--- NOTE | 2017-01-07 09:09 | Emergency Room Report ---
History of Present Illness General Chief Complaint: Skin Rash/Abscess Source: Patient Present Illness HPI Patient is a 66-year-old male who presented after increased itchiness to his hand as well as his left upper extremity and buttock. Patient reports having prior history of similar type symptoms. He reports having these symptoms intermittently since his childhood when he was bit by insects. Patient denies any fever. He takes multiple medications. Patient denied any [place] inhibitor use. He denies any difficulty breathing. Allergies: Coded Allergies: SULFA (SULFONAMIDE ANTIBIOTICS) (Verified Allergy, Unknown, 12/05/16) Patient History Past Medical History: see triage record Reviewed Nursing Documentation: PMH: Agreed, PSxH: Agreed Nursing Documentation-PMH Hx Hypertension: Yes Hx Diabetes: Yes - Pre-diabetic Hx Cancer: No Hx Gastrointestinal Problems: No Hx Neurological Problems: No Review of Systems All Other Systems: negative except mentioned in HPI Physical Exam Vital Signs Date Time Temp Pulse Resp B/P (MAP) Pulse Ox O2 Delivery O2 Flow Rate FiO2 01/07/17 08:24 98.1 78 19 139/65 96 Room Air General Appearance: well appearing, no apparent distress, alert, GCS 15 Head: normocephalic, atraumatic ENT: hearing grossly normal, normal voice Neck: full range of motion, supple Respiratory: no respiratory distress, speaking full sentences Gastrointestinal: normal inspection, non tender Musculoskeletal: normal inspection, no calf tenderness Neurologic: normal inspection, alert, oriented x3, normal gait Psychiatric: mood/affect normal Skin: other - multiple patchy raised areas without significant fluctuance or erythema left upper extremity, axilla, buttock Medical Decision Making Diagnostic Impression: Primary Impression: Allergic reaction ER Course Patient presented for skin rash. Differential diagnosis included was not limited to Gonzalez-Jose A syndrome, urticaria, erythema multiforme, contact dermatitis. Patient's benign exam and does not appear to require any further imaging or laboratory testing at this time. The patient was advised to contacted for repeat exam and discussion of hydrochlorothiazide use. The patient appears to have some evidence of allergic reaction. This may be due to insect bite. The patient shows no systemic symptoms. Patient given prescription for Atarax after being given IM dexamethasone. The patient is advised to follow up with primary care doctor in 1-2 days. Patient is advised to return if any worsening condition or if any changes in status that are concerning. Last Vital Signs Date Time Temp Pulse Resp B/P (MAP) Pulse Ox O2 Delivery O2 Flow Rate FiO2 01/07/17 08:42 98.1 73 19 139/65 96 Room Air Status: improved Disposition: HOME, SELF-CARE Condition: Stable Scripts Hydroxyzine Hcl (HYDROXYZINE HCL) 25 Mg Tablet 25 MG PO Q8HR for Itching, #20 TAB Prov: Raul Palumbo 01/07/17 Referrals: NON PHYSICIAN (PCP) Patient Instructions: Raul Orantes Jan 07, 2017 09:09
== END 2017-01-07 09:12 | disposition home or self-care (01) ==
LOC: EMR 08:49
DX: T78.40XA Allergy, unspecified, initial encounter (principal); X58.XXXA Exposure to other specified factors, initial encounter; R21 Rash and other nonspecific skin eruption; I10 Essential (primary) hypertension; Z88.2 Allergy status to sulfonamides
CPT/HCPCS: 96372; 99283; J1100

== ENCOUNTER 2017-01-11 17:38 | Emergency (ER) | payer MEDICARE, MEDICAID ==
[~2017-01-11] VITALS: Ht 172.7 cm; Wt 111.1 kg
[~2017-01-11 17:38] MED LIST changes: +HYDROXYZINE HCL25 M1 PO
[2017-01-11 17:51] VITALS: BP 158/69
[2017-01-11] MEDS: Dexamethasone 4mg/ml vial IM ONE ×2 (18:15→18:19)
[2017-01-11] MEDS ORDERED: KEFLEX500 MG ORAL (18:37)
[2017-01-11 18:42] VITALS: BP 142/62
--- NOTE | 2017-01-13 14:58 | Emergency Room Report ---
History of Present Illness General Chief Complaint: Skin Rash/Abscess Source: Patient Present Illness HPI Patient is a 66-year-old male who presented after increased skin rash. Patient gradual onset of symptoms. Patient reported having a similar symptoms recently. Patient recently been seen by me for similar symptoms. He stated she improved after he was given an injection of Decadron however he began having different locations of similar type rash. Patient stated he had previous history of allergies to insect bites in this had been similar to previous episodes. Patient had no fever. He denied medications. He had not continue taking Atarax he was recently prescribed. Allergies: Coded Allergies: SULFA (SULFONAMIDE ANTIBIOTICS) (Verified Allergy, Unknown, 12/05/16) Patient History Reviewed Nursing Documentation: PMH: Agreed, PSxH: Agreed Nursing Documentation-PMH Hx Hypertension: Yes Hx Diabetes: Yes - Pre-diabetic Hx Cancer: No Hx Gastrointestinal Problems: No Hx Neurological Problems: No Review of Systems All Other Systems: negative except mentioned in HPI Physical Exam Vital Signs Date Time Temp Pulse Resp B/P (MAP) Pulse Ox O2 Delivery O2 Flow Rate FiO2 01/11/17 17:43 97.9 80 18 158/69 95 Room Air General Appearance: well appearing, no apparent distress, alert, GCS 15 Head: normocephalic, atraumatic ENT: hearing grossly normal, normal voice Neck: full range of motion, supple Respiratory: no respiratory distress, speaking full sentences Cardiovascular #1: normal inspection, regular rate, rhythm, no edema Gastrointestinal: normal inspection, soft, no organomegaly Musculoskeletal: normal inspection, back normal, no calf tenderness Neurologic: normal inspection, alert, oriented x3, responsive, normal gait Psychiatric: mood/affect normal Skin: other - several areas of papular rash with surrounding erythema Medical Decision Making Diagnostic Impression: Primary Impression: Skin rash ER Course Patient presented for skin rash. Differential diagnosis included was not limited to Gonzalez-Jose A syndrome, urticaria, erythema multiforme, contact dermatitis. Patient's benign exam and does not appear to require any further imaging or laboratory testing at this time. Patient's benign exam and does not appear to require any further imaging or laboratory testing at this time. Patient was given IM Decadron. Patient was advised to return if he had any concerns. He is advised followup for recheck with primary care for in one to 2 days Last Vital Signs Date Time Temp Pulse Resp B/P (MAP) Pulse Ox O2 Delivery O2 Flow Rate FiO2 01/11/17 18:42 97.9 18 142/62 95 Room Air 01/11/17 17:43 80 Disposition: HOME, SELF-CARE Condition: Stable Scripts Cephalexin* (KEFLEX*) 500 Mg Capsule 500 MG ORAL Q6H, #28 CAP 0 Refills Prov: Raul Palumbo 01/11/17 Referrals: NON PHYSICIAN (PCP) Patient Instructions: Insect Bite Raul Palumbo Jan 13, 2017 14:58
== END 2017-01-11 18:42 | disposition home or self-care (01) ==
LOC: EMR 18:35
DX: R21 Rash and other nonspecific skin eruption (principal); I10 Essential (primary) hypertension; Z88.2 Allergy status to sulfonamides
CPT/HCPCS: 96372; 99283; J1100

== ENCOUNTER 2017-10-05 18:35 | Emergency (ER) | payer MEDICARE, MEDICAID ==
[~2017-10-05] VITALS: Ht 172.7 cm; Wt 117.9 kg
[~2017-10-05 18:35] MED LIST changes: +KEFLEX500 MG ORAL
[2017-10-05 18:47] VITALS: BP 153/76
--- NOTE | 2017-10-05 19:25 | Emergency Room Report ---
History of Present Illness General Chief Complaint: Skin Rash/Abscess Source: Patient Present Illness HPI 66-year-old male presents emergency department complaining of acute onset swelling to the left hand and didn't addition to multiple "infected insect bites " since yesterday. Patient states he believes he was bitten by insects when he was outside for the October. Patient denies fevers, chills or pain. Patient states that many of the lesions appeared as small pimples and then swelled. Patient reports moderate itching to the bilateral upper extremities. Patient states that several of the insect bites has a blood-blistered appearance. He states that he is currently taking Plavix. Denies lesions/ rashes elsewhere on the body. Denies new medications or body washes or creams. Denies swelling of the lips, tongue , throat or airway. Denies wheezing, or shortness of breath. Denies recent travel, recent illness or ill contacts. denies oral lesions, or sloughing of the skin. He reports difficulty making a fist with the left hand due to swelling he denies skin color changes or significant changes in temperature of the affected extremity. Allergies: Coded Allergies: SULFA (SULFONAMIDE ANTIBIOTICS) (Verified Allergy, Unknown, 12/05/16) Nursing Documentation-[facility] Past Medical History: No History, Except For Hx Hypertension: Yes Hx Diabetes: Yes - Pre-diabetic Hx Cancer: No Hx Gastrointestinal Problems: No Hx Neurological Problems: No Review of Systems All Other Systems: negative except mentioned in HPI Physical Exam Vital Signs Date Time Temp Pulse Resp B/P (MAP) Pulse Ox O2 Delivery O2 Flow Rate FiO2 18 18:37 98.4 90 16 153/76 94 Room Air 98.4 Sp02 EP Interpretation: reviewed, normal General Appearance: no apparent distress, alert, GCS 15, non-toxic Head: normocephalic, atraumatic Eyes: bilateral eye normal inspection, bilateral eye PERRL ENT: hearing grossly normal, normal pharynx, no angioedema, normal voice, other - no oral lesions, no swelling of the lips, tongue, or pharynx. No stridor. Neck: full range of motion Respiratory: chest non-tender, lungs clear, normal breath sounds, no rhonchi, no wheezing, speaking full sentences Cardiovascular #1: regular rate, rhythm, normal capillary refill Musculoskeletal: back normal, gait/station normal, normal range of motion, non- tender, swelling - Left hand. no inscreased temperature to palpation, no tenderness with palpation. Neurologic: alert, oriented x3, responsive, motor strength/tone normal, sensory intact, speech normal, grossly normal Psychiatric: judgement/insight normal Skin: warm/dry, well hydrated, other - Insect bites of multiple areas- infected. Localized allergic reactions- Moderate swelling to the left hand- no erythema no tenderness. Negative Nikolsky sign, no blisters or vesicles. several erythematous plaques noted- urticarial all localized to the bilateral UE 's. Lymphatic: no adenopathy Medical Decision Making PA Attestation Dr. Simons is my supervising Physician whom patient management has been discussed with. Diagnostic Impression: Primary Impression: Rash and other nonspecific skin eruption Additional Impression: Allergic reaction Qualified Codes: T78.40XA - Allergy, unspecified, initial encounter ER Course 66-year-old male presents emergency department complaining of acute onset swelling to the left hand and didn't addition to multiple "infected insect bites " since yesterday. Patient states he believes he was bitten by insects when he was outside for the October. Patient denies fevers, chills or pain. Patient states that many of the lesions appeared as small pimples and then swelled. Patient reports moderate itching to the bilateral upper extremities. Patient states that several of the insect bites has a blood-blistered appearance. He states that he is currently taking Plavix. Denies lesions/ rashes elsewhere on the body. Denies new medications or body washes or creams. Denies swelling of the lips, tongue , throat or airway. Denies wheezing, or shortness of breath. Denies recent travel, recent illness or ill contacts. denies oral lesions, or sloughing of the skin. He reports difficulty making a fist with the left hand due to swelling he denies skin color changes or significant changes in temperature of the affected extremity. Ddx considered but are not limited to cellulitis, scabies, insect bites, tic bites, spider bites, contact dermatitis, Drug reaction, allergic reaction, fungal infection, lice. Vital signs: are WNL, pt. is afebrile H&PE are most consistent with Insect bites of multiple areas-infected. Localized allergic reactions- Moderate swelling to the left hand- no erythema no tenderness. Negative Nikolsky sign, no blisters or vesicles. NVI. several erythematous plaques noted- urticarial all localized to the bilateral UE's. no swelling of the lips or tongue. ORDERS: none required at this time, the diagnosis is clinical ED INTERVENTIONS: -Decadron 8mg IM- pt. driving and unable to take Benadryl at this time. -Clindamycin 300mg PO --pt. has sulfa allergy and I wanted to cover skin melina + /- MRSA -I discussed with this patient extensively to keep a close eye on his left hand and monitor for signs of worsening reaction or infection. Patient is also instructed to follow-up in 48 hours as he states he has difficult time aching appointments with his PCP and has one on the . Pt. verbalizes understanding and agreement with this treatment plan and need for close monitoring of his symptoms. DISCHARGE: At this time pt. is stable for d/c to home. Will provide printed patient care instructions, and any necessary prescriptions. Care plan and follow up instructions have been discussed with the patient prior to discharge. Last Vital Signs Date Time Temp Pulse Resp B/P (MAP) Pulse Ox O2 Delivery O2 Flow Rate FiO2 10/05/17 18:47 98.4 16 153/76 94 Room Air 98.4 10/05/17 18:37 90 Disposition: HOME, SELF-CARE Condition: Stable Scripts Hydrocortisone (Hydrocortisone Cream 2.5%) Y Cream.appl 1 APPLIC TP BID, #28.3 GM Prov: Beata Campbell 10/05/17 Mupirocin* (MUPIROCIN*) 22 Gm Oint...g. 1 APPLIC TOPIC THREE TIMES A DAY, #28.3 GM Prov: Beata Campbell 10/05/17 Diphenhydramine Hcl (BENADRYL ALLERGY) 25 Mg Tablet 25 MG PO Q6HR, #20 TAB Prov: Beata Campbell 10/05/17 Clindamycin Hcl (CLINDAMYCIN HCL) 300 Mg Capsule 300 MG ORAL FOUR TIMES A DAY for 7 Days, #28 CAP Prov: Beata Campbell 10/05/17 Patient Instructions: Cellulitis, [id number], Rash Additional Instructions: Take medications as directed. Follow up with a Primary Care Provider Or to the ED in 48-72 hours,Monitor closely for worsening of symptoms. --Please review list of primary care clinics, if you do not already have a primary care provider Return sooner to ED if new symptoms occur, or current symptoms become worse. Do not drink alcohol, drive, or operate heavy machinery while taking Benadryl as this may cause drowsiness. - Please note that this Emergency Department Report was dictated using [employer]tone[employer] technology software, occasionally this can lead to erroneous entry secondary to interpretation by the dictation equipment. Beata Campbell Oct 05, 2017 19:25
[2017-10-05] MEDS ORDERED: Dexamethasone 4mg/ml vial IM ONE (19:30)
[2017-10-05] MEDS ORDERED: Clindamycin 150mg cap ORAL ONE (19:30)
[2017-10-05] MEDS ORDERED: BENADRYL ALLERG25 M1 PO (19:47)
[2017-10-05] MEDS ORDERED: MUPIROCIN22 GM TOPIC (19:47)
[2017-10-05] MEDS ORDERED: HYDROCORTISONE30 G2 TP (19:47)
[2017-10-05] MEDS ORDERED: CLINDAMYCIN HC300 MG ORAL (19:47)
== END 2017-10-05 19:50 | disposition home or self-care (01) ==
LOC: EMR 19:00
DX: R21 Rash and other nonspecific skin eruption (principal); T78.1XXA Other adverse food reactions, not elsewhere classified, initial encounter; X58.XXXA Exposure to other specified factors, initial encounter; I10 Essential (primary) hypertension; Z88.2 Allergy status to sulfonamides
CPT/HCPCS: 96372; 99284; J1100